=== PATIENT | female | born 1940 | race Two or more races ===

== ENCOUNTER 2024-06-24 13:54 | Inpatient (IN) | payer MEDICARE, BC ==
[~2024-06-24] VITALS: Ht 170.2 cm; Wt 86.2 kg
[~2024-06-24 13:54] MED LIST: ASPI81TA31 PO; CITA10SO3 PO; HYDR12.5 PO; LOSARTIN PO; OMEP20CA15 PO; PITA2TAB PO; POTASSIUM PO
[2024-06-24] MEDS ORDERED: diphenhydrAMINE 50 MG/1 ML VIAL ONE (14:40)
[2024-06-24] MEDS ORDERED: HALOPERIDOL LACTATE 5 MG/1 ML VIAL ONE (14:40)
[2024-06-24] MEDS ORDERED: LORAZEPAM 2 MG/1 ML VIAL ONE (14:41)
[2024-06-24] MEDS ORDERED: HALOPERIDOL LACTATE 5 MG/1 ML VIAL IV ONE (14:45)
[2024-06-24] MEDS ORDERED: diphenhydrAMINE 50 MG/1 ML VIAL IV ONE (14:45)
[2024-06-24] MEDS ORDERED: LORAZEPAM 2 MG/1 ML VIAL IV ONE (14:45)
[2024-06-24 15:10] LABS: BASOPHILS # (AUTO) 0.1 K/UL (0.0-0.2); BASOPHILS % (AUTO) 0.9 % (0.0-2.0); EOSINOPHILS # (AUTO) 0.2 K/uL (0.0-0.7); EOSINOPHILS % (AUTO) 1.6 % (0.0-7.0); HEMATOCRIT 34.9 % (31.2-41.9); HEMOGLOBIN 11.7 g/dL (10.9-14.3); LYMPHOCYTES # (AUTO) 1.2 K/uL (0.8-4.8); LYMPHOCYTES % (AUTO) 12.2 % (20.5-51.5); MEAN CORPUSCULAR HEMOGLOBIN 29.5 uug (24.7-32.8); MEAN CORPUSCULAR HGB CONC 34 g/dL (32.3-35.6); MEAN CORPUSCULAR VOLUME 88.2 fL (75.5-95.3); MONOCYTES # (AUTO) 0.6 K/uL (0.1-1.30); MONOCYTES % (AUTO) 5.9 % (0.0-11.0); NEUTROPHILS # (AUTO) 7.7 K/uL (1.8-8.9); NEUTROPHILS % (AUTO) 79.4 % (38.5-71.5); PLATELET COUNT (AUTO) 322 K/uL (179-408); RED BLOOD CELL COUNT(AUTO) 3.96 MIL/uL (3.63-4.92); RED CELL DISTRIBUTION WIDTH 13.2 % (12.3-17.7); WHITE BLOOD COUNT (AUTO) 9.7 K/uL (3.8-11.8)
[2024-06-24 15:13] LABS: DIFFERENTIAL COMMENT 1
[2024-06-24 15:16] LABS: CALCIUM 9.1 mg/dL (8.5-10.1); CARBON DIOXIDE 28 mmol/L (21-32); CHLORIDE 105 mmol/L (98-107); CREATININE 0.7 mg/dL (0.6-1.3); GLUCOSE 109 mg/dL (74-106); POTASSIUM 4.2 mmol/L (3.5-5.1); SODIUM SERUM 141 mmol/L (136-145); UREA NITROGEN, BLOOD 25 mg/dL (7-18)
[2024-06-24 15:19] LABS: AMMONIA < 10 umol/L (11-32)
[2024-06-24 15:27] LABS: ETHANOL < 3 MG/DL (0-10)
[2024-06-24 15:31] LABS: ACETAMINOPHEN < 2.0 ug/mL (10-30); ALANINE AMINOTRANSFERASE 16 U/L (14-59); ALBUMIN 2.6 g/dL (3.4-5.0); ALKALINE PHOSPHATASE 52 U/L (50-136); ASPARTATE AMINOTRANSFERASE 14 U/L (15-37); BILIRUBIN,DIRECT 0.1 mg/dL (0.0-0.2); BILIRUBIN,TOTAL 0.4 mg/dL (0.2-1.0); TOTAL PROTEIN, SERUM 6.7 g/dL (6.4-8.2)
[2024-06-24 15:38] LABS: THYROID STIMULATING HORMONE 1.051 mIU/mL (0.358-3.740)
[2024-06-24] MEDS: LORAZEPAM 2 MG/1 ML VIAL IV ONE (15:38)
[2024-06-24] MEDS: diphenhydrAMINE 50 MG/1 ML VIAL IV ONE (15:38)
[2024-06-24] MEDS: HALOPERIDOL LACTATE 5 MG/1 ML VIAL IV ONE (15:38)
[2024-06-24] MEDS ORDERED: hydrALAZINE HCL 20 MG/1 ML VIAL ONE (15:44)
[2024-06-24] MEDS: hydrALAZINE HCL 20 MG/1 ML VIAL IV ONE (15:45)
[2024-06-24 16:18] VITALS: O2SAT 98
[2024-06-24] MEDS ORDERED: CARV6.252 PO (16:19)
[2024-06-24] MEDS ORDERED: MEMA21CA2 PO (16:19)
[2024-06-24] MEDS ORDERED: DONE10TA11 PO (16:19)
[2024-06-24] MEDS ORDERED: SIMV10TA98 PO (16:22)
[2024-06-24] MEDS ORDERED: INDA1.255 PO (16:22)
[2024-06-24] MEDS ORDERED: FAMO40TA7 PO (16:22)
[2024-06-24] MEDS ORDERED: OMEP40CA21 PO (16:22)
[2024-06-24] MEDS ORDERED: CITA20TA16 PO (16:23)
[2024-06-24 16:25] LABS: *BILIRUBIN,URIN NEGATIVE (NEGATIVE); *BLOOD, URINE NEGATIVE (NEGATIVE); *CLARITY,URINE CLEAR (CLEAR); *COLOR,URINE YELLOW (YELLOW); *KETONES,URINE NEGATIVE (NEGATIVE); *PROTEIN,URINE NEGATIVE (NEGATIVE); LEUKOCYTE ESTERASE ,URINE NEGATIVE (NEGATIVE); NITRITE, URINE NEGATIVE (NEGATIVE); UGLUCOSE NEGATIVE (NEGATIVE)
[2024-06-24 16:33] LABS: *AMPHETAMINE, URINE NEGATIVE (NEGATIVE); *BARBITURATE, URINE NEGATIVE (NEGATIVE); *BENZODIAZEPINE, URINE NEGATIVE (NEGATIVE); *CANNABINOID, URINE NEGATIVE (NEGATIVE); *COCCAINE, URINE NEGATIVE (NEGATIVE); *OPIATE, URINE NEGATIVE (NEGATIVE); *PHENCYCLIDINE SCREEN,URINE NEGATIVE (NEGATIVE); FENTANYL, URINE NEGATIVE (NEGATIVE)
[2024-06-24 16:38] LABS: BACTERIA,URINE NONE SEEN /HPF (NONE SEEN); RBC,URINE NONE SEEN /HPF (0-3); SQUAMOUS EPITHELIAL CELL,UR FEW /HPF (NONE SEEN); WBC,URINE 0-3 /HPF (0-3)
[2024-06-24] MEDS ORDERED: ONDANSETRON 4 MG/2 ML VIAL IV PRN ×2 (19:15→21:15)
[2024-06-24] MEDS ORDERED: ACETAMINOPHEN 325 MG TABLET PO PRN (19:15)
[2024-06-24 19:45] VITALS: BP 115/79; TEMP 98.7; O2SAT 100
[2024-06-24] MEDS ORDERED: INDAPAMIDE 1.25 MG TABLET PO SCH (21:15)
[2024-06-25 00:07] VITALS: BP 132/71; TEMP 98.6
[2024-06-25 01:30] VITALS: O2SAT 97
[2024-06-25 05:29] VITALS: BP 119/56; TEMP 98; O2SAT 93
[2024-06-25 06:53] LABS: BASOPHILS # (AUTO) 0.1 K/UL (0.0-0.2); EOSINOPHILS # (AUTO) 0.1 K/uL (0.0-0.7); HEMOGLOBIN 11.1 g/dL (10.9-14.3); LYMPHOCYTES # (AUTO) 1.5 K/uL (0.8-4.8); LYMPHOCYTES % (AUTO) 18.5 % (20.5-51.5); MEAN CORPUSCULAR HEMOGLOBIN 29.4 uug (24.7-32.8); MEAN CORPUSCULAR HGB CONC 34 g/dL (32.3-35.6); MEAN CORPUSCULAR VOLUME 87.4 fL (75.5-95.3); MONOCYTES # (AUTO) 0.8 K/uL (0.1-1.30); MONOCYTES % (AUTO) 9.3 % (0.0-11.0); NEUTROPHILS # (AUTO) 5.8 K/uL (1.8-8.9); NEUTROPHILS % (AUTO) 70.2 % (38.5-71.5); PLATELET COUNT (AUTO) 339 K/uL (179-408); RED BLOOD CELL COUNT(AUTO) 3.77 MIL/uL (3.63-4.92); RED CELL DISTRIBUTION WIDTH 13.2 % (12.3-17.7); WHITE BLOOD COUNT (AUTO) 8.2 K/uL (3.8-11.8)
[2024-06-25 07:06] LABS: DIFFERENTIAL COMMENT 1
[2024-06-25 07:15] LABS: ALANINE AMINOTRANSFERASE 15 U/L (14-59); ALBUMIN 2.3 g/dL (3.4-5.0); ALKALINE PHOSPHATASE 46 U/L (50-136); ASPARTATE AMINOTRANSFERASE 9 U/L (15-37); BILIRUBIN,TOTAL 0.7 mg/dL (0.2-1.0); CALCIUM 8.5 mg/dL (8.5-10.1); CARBON DIOXIDE 28 mmol/L (21-32); CHLORIDE 103 mmol/L (98-107); CHOLESTEROL 145 mg/dL (<200); CREATININE 0.6 mg/dL (0.6-1.3); GLUCOSE 104 mg/dL (74-106); HDL CHOLESTEROL 48 mg/dL (40-60); MAGNESIUM 1.8 mg/dL (1.8-2.4); NT-PRO BNP 1481 pg/mL (0-125); PHOSPHOROUS 3.8 mg/dL (2.5-4.9); POTASSIUM 3.7 mmol/L (3.5-5.1); SODIUM SERUM 138 mmol/L (136-145); TOTAL PROTEIN, SERUM 6.1 g/dL (6.4-8.2); TRIGLYCERIDES 66 MG/DL (30-150); UREA NITROGEN, BLOOD 18 mg/dL (7-18)
[2024-06-25 08:00] VITALS: BP 127/64; TEMP 98.1; O2SAT 96
[2024-06-25] MEDS ORDERED: MEMANTINE HCL PO SCH (09:00)
[2024-06-25] MEDS: FAMOTIDINE 20 MG TABLET PO SCH (09:49)
[2024-06-25] MEDS: CITALOPRAM 20 MG TABLET PO SCH (09:49)
[2024-06-25] MEDS: CARVEDILOL 6.25 MG TABLET PO SCH (09:49)
[2024-06-25] MEDS: MEMANTINE HCL 10 MG TABLET PO SCH (09:49)
[2024-06-25] MEDS: ASPIRIN 81 MG TAB.CHEW PO SCH (09:51)
[2024-06-25 15:55] VITALS: BP 123/66; TEMP 98.7; O2SAT 93
[2024-06-25 19:48] VITALS: BP 137/77; TEMP 98.3; O2SAT 93
[2024-06-25] MEDS: DOCUSATE SODIUM 100 MG CAPSULE PO SCH (20:51)
[2024-06-25] MEDS: DONEPEZIL 10 MG TABLET PO SCH (20:51)
[2024-06-25] MEDS: MEMANTINE HCL 5 MG TABLET PO SCH (20:51)
[2024-06-25] MEDS: SIMVASTATIN 10 MG TABLET PO SCH (20:51)
[2024-06-25] MEDS: TEMAZEPAM 7.5 MG CAPSULE PO PRN (23:39)
[2024-06-26 00:15] VITALS: BP 114/65; TEMP 98.7; O2SAT 92
[2024-06-26 07:33] VITALS: BP 141/70; TEMP 98.4; O2SAT 93
[2024-06-26] MEDS: INDAPAMIDE 1.25 MG TABLET PO SCH (08:47)
[2024-06-26 11:10] VITALS: BP 116/68; TEMP 98.3; O2SAT 95
[2024-06-26 15:22] VITALS: BP 133/52; TEMP 98.4; O2SAT 93
[2024-06-26 19:47] VITALS: BP 128/70; TEMP 98.3; O2SAT 92
[2024-06-26] MEDS: FUROSEMIDE 20 MG/2 ML VIAL IV ONE (20:54)
[2024-06-26 23:53] VITALS: BP 122/67; TEMP 98.2; O2SAT 93
[2024-06-27 05:40] VITALS: BP 149/81; TEMP 98.4; O2SAT 94
[2024-06-27] MEDS: ACETAMINOPHEN 325 MG TABLET PO PRN (06:08)
[2024-06-27 06:57] LABS: BASOPHILS # (AUTO) 0.1 K/UL (0.0-0.2); BASOPHILS % (AUTO) 0.8 % (0.0-2.0); EOSINOPHILS # (AUTO) 0.2 K/uL (0.0-0.7); EOSINOPHILS % (AUTO) 2.1 % (0.0-7.0); HEMOGLOBIN 11.6 g/dL (10.9-14.3); LYMPHOCYTES # (AUTO) 1.8 K/uL (0.8-4.8); LYMPHOCYTES % (AUTO) 23.8 % (20.5-51.5); MEAN CORPUSCULAR HEMOGLOBIN 29.9 uug (24.7-32.8); MEAN CORPUSCULAR HGB CONC 34 g/dL (32.3-35.6); MEAN CORPUSCULAR VOLUME 87.4 fL (75.5-95.3); MONOCYTES # (AUTO) 0.7 K/uL (0.1-1.30); MONOCYTES % (AUTO) 9.6 % (0.0-11.0); NEUTROPHILS # (AUTO) 4.8 K/uL (1.8-8.9); NEUTROPHILS % (AUTO) 63.7 % (38.5-71.5); PLATELET COUNT (AUTO) 378 K/uL (179-408); RED BLOOD CELL COUNT(AUTO) 3.89 MIL/uL (3.63-4.92); RED CELL DISTRIBUTION WIDTH 13.1 % (12.3-17.7); WHITE BLOOD COUNT (AUTO) 7.6 K/uL (3.8-11.8)
[2024-06-27 07:10] LABS: DIFFERENTIAL COMMENT 1
[2024-06-27 07:12] LABS: CALCIUM 8.6 mg/dL (8.5-10.1); CARBON DIOXIDE 30 mmol/L (21-32); CHLORIDE 102 mmol/L (98-107); CREATININE 0.6 mg/dL (0.6-1.3); GLUCOSE 106 mg/dL (74-106); MAGNESIUM 1.8 mg/dL (1.8-2.4); PHOSPHOROUS 3.8 mg/dL (2.5-4.9); POTASSIUM 3.6 mmol/L (3.5-5.1); SODIUM SERUM 140 mmol/L (136-145); UREA NITROGEN, BLOOD 17 mg/dL (7-18)
[2024-06-27 10:56] VITALS: BP 118/61; TEMP 98.4; O2SAT 94
[2024-06-27 15:08] VITALS: BP 143/76; TEMP 97.6; O2SAT 92
== END 2024-06-27 17:20 | disposition home health service (06) | DRG 392 ==
LOC: ER 14:08 → TELE3 17:35
PROVIDERS: ADMIT Internal Medicine; ATTEND Internal Medicine
DX: K21.00 Gastro-esophageal reflux disease with esophagitis, without bleeding (principal); E44.0 Moderate protein-calorie malnutrition; D68.59 Other primary thrombophilia; F02.83 Dementia in other diseases classified elsewhere, unspecified severity, with mood disturbance; F02.811 Dementia in other diseases classified elsewhere, unspecified severity, with agitation; M94.0 Chondrocostal junction syndrome [Tietze]; Z74.09 Other reduced mobility; I35.0 Nonrheumatic aortic (valve) stenosis; J06.9 Acute upper respiratory infection, unspecified; E66.9 Obesity, unspecified; Z68.29 Body mass index [BMI] 29.0-29.9, adult; E86.0 Dehydration; G30.9 Alzheimer's disease, unspecified; F32.A Depression, unspecified; Z91.81 History of falling; Z79.899 Other long term (current) drug therapy; E88.09 Other disorders of plasma-protein metabolism, not elsewhere classified; M50.30 Other cervical disc degeneration, unspecified cervical region; Z79.82 Long term (current) use of aspirin; I11.9 Hypertensive heart disease without heart failure; E78.00 Pure hypercholesterolemia, unspecified
CPT/HCPCS: 36415; 70450; 71045; 72125; 83605; 83735; 84100; 84443; 84484; 85025; 85730; 87040; 87086; 93005; 93307; A4606; A4663; C1758; G0378; G0480; J0360; J1200; J1630; J1940; J2060